=== PATIENT | female | born 1960 | race Caucasian/White ===

== ENCOUNTER 2018-11-10 08:14 | Inpatient (IN) | payer MEDICARE, MEDICAID ==
[~2018-11-10] VITALS: Ht 172.7 cm; Wt 64.1 kg
[2018-11-10] VITALS (8 sets, daily range): BP systolic 128–154; BP diastolic 85–101; BMI 21.1
[2018-11-10] MEDS ORDERED: ATIVAN1 MG PO (08:21)
[2018-11-10] MEDS ORDERED: BUPROPION XL150 MG PO (08:22)
[2018-11-10] MEDS ORDERED: EFFEXOR75 MG PO (08:23)
[2018-11-10] MEDS ORDERED: VITAMIN D250000 UNIT PO (08:23)
[2018-11-10] MEDS ORDERED: POTASSIUM CHLO10 ME1 PO (08:23)
[2018-11-10] MEDS ORDERED: VITAMIN B-1100 M1 PO (08:24)
[2018-11-10 08:52] LABS: BASOPHILS 0.3 % (0-2); EOSINOPHILS 1.7 % (0-7); HEMATOCRIT 37.8 % (36.0-48.0); HEMOGLOBIN 13.3 g/dL (12-16); IMMATURE GRANULOCYTES 0.4 % (0-5); LYMPHOCYTES 17.5 % (15-50); MCH 32.7 pg (26.0-34.0); MCHC 35.2 g/dL (31.0-37.0); MCV 92.9 fL (80.0-100.0); MEAN PLATELET VOLUME 8.3 fL (7.4-10.4); MONOCYTES 5.7 % (2-11); NEUTROPHILS 74.4 % (40-80); PLATELET COUNT 232 10x3/uL (130-400); RBC 4.07 10x6/uL (4.00-5.40); WBC 7.5 10x3/uL (4.8-10.8)
[2018-11-10 09:02] LABS: INR 0.97 (0.85-1.17); PROTIME 12.4 SECONDS (11.6-15.0)
[2018-11-10 09:06] LABS: ALKALINE PHOSPHATASE 78 U/L (46-116); ALT (SGPT) 33 U/L (10-68); BILIRUBIN - TOTAL 0.36 mg/dL (0.2-1.3); CALC OSMOLALITY 263 mosm/kg (275-300); CALCIUM 10.2 mg/dL (8.5-10.1); CARBON DIOXIDE 27.4 mmol/L (21.0-32.0); CHLORIDE - SERUM 98 mmol/L (98-107); CREATININE - SERUM 0.7 mg/dL (0.6-1.3); GLUCOSE 108 mg/dL (74-106); POTASSIUM - SERUM 3.9 mmol/L (3.5-5.1); PROTEIN - SERUM 6.1 g/dL (6.4-8.2); SODIUM 132 mmol/L (136-145); UREA NITROGEN 7 mg/dL (7-18); eGFR NON AFRICAN AMERICAN > 90 mL/min (90-120)
[2018-11-10 09:21] LABS: CKMB 0.7 U/L (0.0-3.6); CREATINE KINASE 25 UL (21-215); MAGNESIUM - SERUM 1.7 mg/dL (1.8-2.4); TROPONIN-I < 0.017 ng/mL (0.000-0.060)
[2018-11-10 09:55] LABS: APPEARANCE CLEAR (CLEAR); BILIRUBIN NEGATIVE (NEGATIVE); COLOR YELLOW (YELLOW); GLUCOSE NEGATIVE (NEGATIVE); KETONE NEGATIVE (NEGATIVE); NITRITE NEGATIVE (NEGATIVE); PROTEIN NEGATIVE (NEGATIVE); SPECIFIC GRAVITY 1.005 (1.005-1.020); UROBILINOGEN NORMAL (NORMAL)
[2018-11-10 10:01] LABS: UDS - AMPHET NEGATIVE QUAL (NEGATIVE); UDS - BARB NEGATIVE QUAL (NEGATIVE); UDS - BENZO NEGATIVE QUAL (NEGATIVE); UDS - COCAINE NEGATIVE QUAL (NEGATIVE); UDS - OPIATE NEGATIVE QUAL (NEGATIVE); UDS - PCP NEGATIVE QUAL (NEGATIVE); UDS - THC NEGATIVE QUAL (NEGATIVE)
--- NOTE | 2018-11-10 18:00 | NUR ---
TO MRI VIA WC.
--- NOTE | 2018-11-10 18:50 | NUR ---
BACK TO BED. ALARM ON.
--- NOTE | 2018-11-10 19:00 | NUR ---
PT QUIT BEFORE MRI CONTRAST WAS GIVEN. SAID SHE DID NOT WANT TO CONTINUE FOR CONTRAST. ALL NON CONTRAST IMAGES WERE OBTAINED
--- NOTE | 2018-11-10 20:00 | NUR ---
PT WAS OFF MONITOR FROM PREVIOUS SHIFT, I PLACED HER BACK ON MONITOR VERIFIED ORDERS AND GAVE PATIENT A SNACK ALL NEEDS MET AT THIS TIME. ALSO GAVE FIRST DOSE OF MAG REPLACEMENT WILL GIVE ANOTHER DOSE IN 4 HOURS.
[2018-11-11] VITALS (9 sets, daily range): BP systolic 120–142; BP diastolic 80–118; Ht 172.7 cm; Wt 64.1 kg
--- NOTE | 2018-11-11 00:10 | NUR ---
pt awake watching tv, denies any needs for pain meds or anxiety meds, snack provided all safety measures in place.
[2018-11-11 04:44] LABS: BASOPHILS 0.3 % (0-2); EOSINOPHILS 2.2 % (0-7); HEMATOCRIT 34.5 % (36.0-48.0); HEMOGLOBIN 11.8 g/dL (12-16); IMMATURE GRANULOCYTES 0.5 % (0-5); LYMPHOCYTES 24.7 % (15-50); MCH 32.1 pg (26.0-34.0); MCHC 34.2 g/dL (31.0-37.0); MCV 93.8 fL (80.0-100.0); MEAN PLATELET VOLUME 8.4 fL (7.4-10.4); MONOCYTES 5.9 % (2-11); NEUTROPHILS 66.4 % (40-80); PLATELET COUNT 213 10x3/uL (130-400); RBC 3.68 10x6/uL (4.00-5.40); RDW 14.3 % (11.5-14.5); WBC 6.4 10x3/uL (4.8-10.8)
[2018-11-11 06:13] LABS: ALBUMIN 2.5 g/dL (3.4-5.0); ALKALINE PHOSPHATASE 69 U/L (46-116); ALT (SGPT) 27 U/L (10-68); BILIRUBIN - TOTAL 0.33 mg/dL (0.2-1.3); CALCIUM 9.8 mg/dL (8.5-10.1); CARBON DIOXIDE 22.6 mmol/L (21.0-32.0); CHLORIDE - SERUM 101 mmol/L (98-107); GLUCOSE 97 mg/dL (74-106); PROTEIN - SERUM 5.1 g/dL (6.4-8.2); SODIUM 134 mmol/L (136-145)
[2018-11-11 06:26] LABS: CALC OSMOLALITY 264 mosm/kg (275-300); CREATININE - SERUM 0.5 mg/dL (0.6-1.3); POTASSIUM - SERUM 4.7 mmol/L (3.5-5.1); UREA NITROGEN 5 mg/dL (7-18); eGFR NON AFRICAN AMERICAN > 90 mL/min (90-120)
--- NOTE | 2018-11-11 18:42 | MORECARE ---
CASE MANAGEMENT DISCHARGE SUMMARY PATIENT: PERLA STRICKLAND UNIT: [id number] ADM DATE: 11/10/18 AGE: 58 : 58 SEX: F ROOM/BED: D.2311 AUTHOR: ROC ARCINIEGA PHYSICIAN: REFERRING PHYSICIAN: MARCELA MERRILL MD DATE OF SERVICE: 11/11/18 Discharge Plan Patient Name: PERLA STRICKLAND [facility] : 1960 Planned Disposition: Home Anticipated Discharge Date: Discharge Date: Expected LOS: Initial Reviewer: [email or web address] Initial Review Date: 11/11/2018 Generated: 11/11/18 7:42 pm DCPIA - Discharge Planning Initial Assessment Updated by [email or web address]: Ave Chow on 11/11/18 6:38 pm * Is the patient Alert and Oriented? No * How many steps to enter\exit or inside your home? ramp * PCP Jake Terry - [place] * Pharmacy [facility] [place] * Preadmission Environment Home with Family * ADLs Independent * Equipment None * List name and contact numbers for known caregivers / representatives who currently or will assist patient after discharge: Giovanny Snell - [facility] other- [phone] * Verbal permission to speak to the caregivers and representatives has been obtained from the patient. N/A * Community resources currently utilized None * Additional services required to return to the preadmission environment? No * Can the patient safely return to the preadmission environment? Yes * Has this patient been hospitalized within the prior 30 days at any hospital? No Patient Name: PERLA STRICKLAND Page [id number] at 1842 All edits/amendments must be made on the electronic document DICTATION DATE: 11/11/181841 EXECUTIVE WELLNESS PROGRAMS DIRECTOR: LATESHA 11/11/181841 RPT#: [id number] DC DATE: STATUS: ADM IN [facility] [address] [place] [address] END OF REPORT
--- NOTE | 2018-11-11 18:50 | MORECARE ---
CASE MANAGEMENT DISCHARGE SUMMARY PATIENT: PERLA STRICKLAND UNIT: [id number] ADM DATE: 11/10/18 AGE: 58 : 58 SEX: F ROOM/BED: D.2311 AUTHOR: SUZE,DOC PHYSICIAN: REFERRING PHYSICIAN: MARCELA MERRILL MD DATE OF SERVICE: 11/11/18 Discharge Plan Patient Name: PERLA STRICKLAND Facility: [facility]:[place] : 1960 Planned Disposition: Home Anticipated Discharge Date: Discharge Date: Expected LOS: Initial Reviewer: [email or web address] Initial Review Date: 11/11/2018 Generated: 11/11/18 7:49 pm Comments DCP- Discharge Planning Updated by [id number]: Ave Chow on 11/11/18 5:[address] LATE ENTRY 11/11/18 @ 1720 Patient Name: PERLA STRICKLAND Admission Status: ER Accout number: [id number] Admission Date: 11-10-2018 : 1960 Admission Diagnosis: Attending: MARCELA MERRILL Current LOS: 1 Anticipated DC Date: Planned Disposition: Home Primary Insurance: [employer] CHOICE PPO MCR ADVANT Discharge Planning Comments: CM met with patient and significant other (Giovanny) at bedside. Patient is confused so Giovanny answered all interview questions. Patient lives with Giovanny in their home. Giovanny states that patient doesn't have in medical equipment in the home or home health services. Giovanny denies any discharge needs at this time. CM will continue to follow and assist as needed with discharge planning / needs. Information Scientist: Ave Chow DCPIA - Discharge Planning Initial Assessment Updated by [email or web address]: Ave Chow on 11/11/18 6:38 pm * Is the patient Alert and Oriented? No * How many steps to enter\exit or inside your home? ramp * PCP Jake Terry - [place] * Pharmacy [facility] [place] * Preadmission Environment Home with Family * ADLs Independent * Equipment None * List name and contact numbers for known caregivers / representatives who currently or will assist patient after discharge: Giovanny Snell - Significant other- [phone] * Verbal permission to speak to the caregivers and representatives has been obtained from the patient. N/A * Community resources currently utilized None * Additional services required to return to the preadmission environment? No * Can the patient safely return to the preadmission environment? Yes * Has this patient been hospitalized within the prior 30 days at any hospital? No Last DP export: 11/11/18 5:42 pm Patient Name: PERLA STRICKLAND Page [id number] at 1850 All edits/amendments must be made on the electronic document DICTATION DATE: 11/11/181848 REAL ESTATE ASSOCIATE: LATESHA 11/11/181848 RPT#: [id number] DC DATE: STATUS: ADM IN [facility] [address] [place] [address] END OF REPORT
--- NOTE | 2018-11-11 20:45 | NUR ---
PT IS SITTING UP IN BED ATIVAN WAS GIVEN, SHE IS STILL WRINGING HANDS AND TREMORING, VSS ALL SAFETY MEASURES IN PLACE, SHE IS IN SIGHT OF THIS NURSE, WILL CONTINUE TO MONITOR.
--- NOTE | 2018-11-12 00:01 | NUR ---
pt seems very anxious asking to go outside, keeps folding blankets, sits up then lays back continually, ativan seems to have made her more anxious. pt wanting to leave, educated pt on need to stay and get stronger so she quits falling. pt also complaining of itching again after the start of banana bag, pt does have rash over body, will continue to monitor.
--- NOTE | 2018-11-12 00:34 | NUR ---
pt appears to be resting laying back with head covered up, no needs at this time will continue to monitor.
[2018-11-12 05:00] VITALS: BP 142/95
[2018-11-12 06:00] VITALS: BP 142/95
[2018-11-12 07:00] VITALS: BP 132/98
--- NOTE | 2018-11-12 07:00 | NUR ---
SHIFT REPORT RECEIVED. AWAKE AND ALERT. ON ROOM AIR WITH 97% O2 SAT. ORAL TEMP 98.3. BP 132/98 MAP 114, HR 90 NORMAL SINUS. LUNG SOUNDS COARSE. DRY COUGH NOTED. HAS R-FOREARM PIV SALINE LOCK. DOW IN PLACE WITH YELLOW URINE NOTED. DENIES HAVING PAIN AT THIS TIME. GENERALIZED BRUISING NOTED. SCAB ON LEFT KNEE. PT STATES SHE HAD BEEN FALLING FREQUENTLY AT HOME. SHIFT ASSESSMENT COMPLETED. DENIES FURTHER NEEDS AT THIS TIME. BED ALARM ON. WILL CONTINUE TO MONITOR.
--- NOTE | 2018-11-12 07:20 | NUR ---
SHIFT REPORT RECEIVED. PT AWAKE AND ALERT. CONFUSED TO DATE AND TIME. RESTING ON HER RIGHT SIDE. REPORT PAIN 3/10 ON HER LEFT FOOT. PITTING EDEMA 3+ ON RIGHT AND LEFT LE. HAS REI PICC LINE SALINE LOCKED. BRUISING NOTED ON HER BACK AND ARMS. BRUISE NOTED ON RIGHT LITTLE TOE. ON 8L OXYMIZER WITH O2 SAT 90%. AXILLARY TEMP 97.0. HR 106. BP 128/[address]OW IN PL[address] WITH CLEAR YELLOW URINE NOTED. SHIFT ASSESSMENT COMPLETED. CALL LIGHT IN REACH. SIDE RAILS UP X 2. BED LOW POSITION. WILL CONTINUE TO MONITOR.
--- NOTE | 2018-11-12 09:18 | NUR ---
AM MEDS GIVEN. NICOTINE PATCH PLACED ON REI. OLD NICOTINE PATCH REMOVED. ATE 90% OF MEAL AND HAD ABOUT 200ML OF FLUID. BATH SET UP AND CLEAN GOWN AND LINENS PROVIDED. PT ABLE TO BATHE SELF. ICE WATER PROVIDED. NO FURTHER NEEDS AT THIS TIME. WILL CONTINUE TO MONITOR.
[2018-11-12 11:00] VITALS: BP 141/96
--- NOTE | 2018-11-12 12:13 | NUR ---
LUNCH TRAY DELIVERED AND SET UP. DENIES FURTHER NEEDS AT THIS TIME. WILL CONTINUE TO MONITOR.
--- NOTE | 2018-11-12 14:22 | NUR ---
PT RESTING COMFORTABLY. WAITING FOR ROOM TO BECOME AVAILABLE TO TRANSFER. DENIES FURTHER NEEDS AT THIS TIME. WILL CONTINUE TO MONITOR.
--- NOTE | 2018-11-12 14:25 | NUR ---
PAPER WORK FAXED FOR PSYCH CONSULT. PHONE CALL PLACED TO [facility] TO NOTIFY STAFF THAT CONSULT HAD BEEN FAXED.
--- NOTE | 2018-11-12 15:10 | NUR ---
PT SITTING UP IN BED. CONFUSED TO TIME AND PLACE. NO ACUTE CHANGES. DENIES FURTHER NEEDS. WILL CONTINUE TO MONITOR.
[2018-11-12 16:00] VITALS: BP 140/96
--- NOTE | 2018-11-12 17:15 | NUR ---
DINNER TRAY DELIVERE TO ROOM AND SET UP. PT DENIES OTHER NEEDS AT THIS TIME. WILL CONTINUE TO MONITOR.
[2018-11-12 19:00] VITALS: BP 150/97
--- NOTE | 2018-11-12 21:30 | NUR ---
NEW PERIPHERAL #20 IV STARTED IN LEFT FOREARM WITH ONE STICK. GOOD BLOOD RETURN, EASILY FLUSHES, NO COMPLAINTS FROM PATIENT. SALINE LOCKED.
[2018-11-13] VITALS (7 sets, daily range): BP systolic 99–162; BP diastolic 66–113
--- NOTE | 2018-11-13 13:45 | NUR ---
OBSERVED PT PULLING AT DOW, PT VERBALIZED SHE DID NOT NEED THE DOW SHE COULD URINATE ON HER ON AND WANTS IT REMOVED. REMOVED 8ML SALINE FROM DOW PORT, REMOVED DOW CATH INTACT
--- NOTE | 2018-11-13 14:25 | NUR ---
ASSISTED PT WITH CLEANING BOTTOM AFTER BM, APPLIED BUTTPASTE TO BUTTOCKS
--- NOTE | 2018-11-13 15:30 | NUR ---
CALLED REPORT TO JEAN-PAUL LUNDBERG ON MED 3
--- NOTE | 2018-11-13 16:45 | NUR ---
TRANSPORTED VIA W/C TO [facility] 1205.
--- NOTE | 2018-11-13 17:14 | NUR ---
RESUMED PT CARE. PT ALERT X 4. DINNER IN ROOM. NO OTHER NEEDS AT THIS TIME.
--- NOTE | 2018-11-13 19:40 | NUR ---
PATIENT SITTING UP IN BED WITH NO S/S OF DISTRESS AND AT BEDSIDE. PATIENT DENIES NEEDS AT THIS TIME. BED IN LOWEST POSITION AND CALL LIGHT WITHIN REACH. ENCOURAGED THE PATIENT TO CALL IF SHE HAS NEEDS. WILL CONTINUE TO MONITOR.
[2018-11-14 04:00] VITALS: BP 133/90
[2018-11-14 08:24] VITALS: BP 126/86
--- NOTE | 2018-11-14 09:20 | NUR ---
AM MEDS GIVEN AT THIS TIME. ALSO PROVIDED PT WITH COFFEE. PT DENIES ANY OTHER NEEDS AT THIS TIME. CALL LIGHT IN REACH, NAD NOTED,W ILL CONTINUE TO MONITOR.
--- NOTE | 2018-11-14 11:00 | NUR ---
[facility] WAS WONDERING AROUND AROUND THE UNIT. WENT AND GOT PT BACK TO ROOM. PT STATED THAT SHE THOUGHT SHE WAS IN ROOM 2205 INSTEAD OF ROOM 1205. PT DENIES ANY NEEDS AT THIS TIME. CALL LIGHT IN REACH, NAD NOTED, WILL CONTINUE TO MONITOR.
--- NOTE | 2018-11-14 11:47 | NUR ---
CALLED [facility] AND INFORMED THEM OF CONSULT FOR DR. CAREY.
[2018-11-14 13:00] VITALS: BP 129/90
[2018-11-14 13:40] LABS: BASOPHILS 0.4 % (0-2); EOSINOPHILS 3.5 % (0-7); HEMATOCRIT 35.6 % (36.0-48.0); HEMOGLOBIN 12.1 g/dL (12-16); IMMATURE GRANULOCYTES 0.2 % (0-5); LYMPHOCYTES 27.6 % (15-50); MCH 32.7 pg (26.0-34.0); MCV 96.2 fL (80.0-100.0); MEAN PLATELET VOLUME 8.6 fL (7.4-10.4); MONOCYTES 6.7 % (2-11); NEUTROPHILS 61.6 % (40-80); PLATELET COUNT 245 10x3/uL (130-400); RDW 14.4 % (11.5-14.5); WBC 4.9 10x3/uL (4.8-10.8)
[2018-11-14 13:55] LABS: CALC OSMOLALITY 272 mosm/kg (275-300); CALCIUM 10.1 mg/dL (8.5-10.1); CARBON DIOXIDE 25.4 mmol/L (21.0-32.0); CHLORIDE - SERUM 104 mmol/L (98-107); CREATININE - SERUM 0.7 mg/dL (0.6-1.3); GLUCOSE 88 mg/dL (74-106); POTASSIUM - SERUM 3.8 mmol/L (3.5-5.1); SODIUM 138 mmol/L (136-145); UREA NITROGEN 8 mg/dL (7-18); eGFR NON AFRICAN AMERICAN > 90 mL/min (90-120)
[2018-11-14 16:54] VITALS: BP 141/86
--- NOTE | 2018-11-14 17:56 | MORECARE ---
CASE MANAGEMENT DISCHARGE SUMMARY PATIENT: PERLA STRICKLAND UNIT: [id number] ADM DATE: 11/10/18 AGE: 58 : 58 SEX: F ROOM/BED: D.1205 AUTHOR: SUZE,DOC PHYSICIAN: REFERRING PHYSICIAN: MARCELA MERRILL MD DATE OF SERVICE: 11/14/18 Discharge Plan Patient Name: PERLA STRICKLAND Facility: [facility]:[place] : 1960 Planned Disposition: Home Anticipated Discharge Date: Discharge Date: Expected LOS: Initial Reviewer: [email or web address] Initial Review Date: 11/11/2018 Generated: 11/14/18 6:56 pm Comments DCP- Discharge Planning Updated by [email or web address]: Ana Betancur on 11/14/18 4:[address] PSYCH CONSULT ORDERED THIS AM. PATIENT WAS SEEN BY DR COFFEY THIS PM. DCP- Discharge Planning Updated by [email or web address]: Ave Chow on 11/11/18 5:[address] LATE ENTRY 11/11/18 @ 1720 Patient Name: PERLA STRICKLAND Admission Status: ER Accout number: [id number] Admission Date: 11-10-2018 : 1960 Admission Diagnosis: Attending: MARCELA MERRILL Current LOS: 1 Anticipated DC Date: Planned Disposition: Home Primary Insurance: [employer] CHOICE PPO MCR ADVANT Discharge Planning Comments: CM met with patient and significant other (Giovanny) at bedside. Patient is confused so Giovanny answered all interview questions. Patient lives with Giovanny in their home. Giovanny states that patient doesn't have in medical equipment in the home or home health services. Giovanny denies any discharge needs at this time. CM will continue to follow and assist as needed with discharge planning / needs. Executive Business Coach: Ave Chow DCPIA - Discharge Planning Initial Assessment Updated by [email or web address]: Ave Chow on 11/11/18 6:38 pm * Is the patient Alert and Oriented? No * How many steps to enter\exit or inside your home? ramp * PCP Jake White * Pharmacy [facility] [place] * Preadmission Environment Home with Family * ADLs Independent * Equipment None * List name and contact numbers for known caregivers / representatives who currently or will assist patient after discharge: Giovanny Rojo [facility]- [phone] * Verbal permission to speak to the caregivers and representatives has been obtained from the patient. N/A * Community resources currently utilized None * Additional services required to return to the preadmission environment? No * Can the patient safely return to the preadmission environment? Yes * Has this patient been hospitalized within the prior 30 days at any hospital? No Last DP export: 11/11/18 5:50 pm Patient Name: PERLA STRICKLAND Page [phone] at 1756 All edits/amendments must be made on the electronic document DICTATION DATE: 11/14/181754 BEATER ENGINEER: LATESHA 11/14/181754 RPT#: [id number] DC DATE: STATUS: ADM IN [facility] [address] [place] [address] END OF REPORT
--- NOTE | 2018-11-14 19:48 | NUR ---
BROUGHT PATIENT A CUP OF COFFEE PER HER REQUEST. PATIENT DENIES OTHER NEEDS AT THIS TIME. BED IN LOWEST POSITION AND CALL LIGHT WITHIN REACH. ENCOURAGED THE PATIENT TO CALL IF SHE HAS NEEDS.
[2018-11-14 20:00] VITALS: BP 113/75
[2018-11-15] VITALS: BP 119/77
[2018-11-15 04:00] VITALS: BP 142/90
[2018-11-15 07:27] VITALS: BP 126/89
--- NOTE | 2018-11-15 08:21 | NUR ---
AM MEDS GIVEN AT THIS TIME. PT IN BED EATING BREAKFAST, DENIES ANY NEEDS AT THIS TIME. PT A/O X2, RESP EVEN AND NONLABORED ON RA. CALL LIGHT IN REACH, NAD NOTED,W ILL CONTINUE TO MONITOR.
[2018-11-15 11:43] VITALS: BP 143/91
--- NOTE | 2018-11-15 12:29 | NUR ---
Regular diet with 25,75,75% intake of meals yesterday Pt reports good appetite. Pt reports she has some difficulty chewing as has not brought in teeth for her. Pt is ordering per toleration and does not want diet adjusted. Pt will not drink Ensure but likes Boost. Ordered Boost all trays. Pt hopes/expects will bring teeth tonight RD following
[2018-11-15] MEDS ORDERED: LEXAPRO10 MG PO (12:38)
[2018-11-15] MEDS ORDERED: COREG6.25 MG PO (12:39)
--- NOTE | 2018-11-15 14:29 | NUR ---
PROVIDED VERBAL AND WRITTEN DISCHARGE TEACHING TO PT, WHO VERBALIZED UNDERSTANDING REGARDING TEACHING. D/C LT FA IV WITH CATHETER TIP INTACT. PT TRYING TO GET A RIDE, WILL NOTIFY THIS NURSE WHEN SHE HAS SOMEONE TO COME PICK HER UP. PT DENIES ANY NEEDS AT THIS TIME. CALL LIGHT IN REACH, NAD NOTED, WILL CONTINUE TO MONITOR.
--- NOTE | 2018-11-15 15:13 | CN ---
PATIENT NAME:PERLA STRICKLAND MEDICAL RECORD: [id number] : 58 [facility] ADMIT DATE: 11/10/18 ACCOUNT: [id number] CONSULTING PHYSICIAN: SALVADOR COFFEY MD REFERRING PHYSICIAN: MARCELA MERRILL MD DATE OF CONSULTATION: 11/14/2018 PSYCHIATRIC CONSULTATION IDENTIFYING DATA: The patient is 58 years old and she is admitted to the hospital on a voluntary basis. CHIEF COMPLAINT: Confusion. HISTORY OF PRESENT ILLNESS: The patient apparently had been falling at home and was brought to the hospital because of this along with some confusion. She apparently was drinking very heavily and has done so for a long time. She is evasive about how much she drinks, but I also think she does not accurately recall it. She also says she is not going to drink anymore and that this incident has frightened her, but she is glad she is fully recovered. She says she is fully recovered. She denies depressive symptoms. She denies psychotic symptoms. She sees no evidence or is able to detect no evidence of any impairment. MENTAL STATUS EXAMINATION: The patient is awake; alert; and oriented to person, place, and somewhat to time and situation. She identifies the year as 2019 and the month is February. Her mood is euthymic. Her affect is appropriate. Thought processes are goal directed. Memory, concentration, and abstraction abilities are impaired. She denies intent to harm herself or others as well as psychotic symptoms. ASSESSMENT: Alcohol-related dementia. PLAN: The patient, in my view, is significantly and seriously impaired. It is my understanding, both from the medical record as well as from the patient herself, that her long-term live-in boyfriend, Giovanny ____, is going to care for her. Apparently, they have cohabitated for the past 12 years. She wants to go home with him as soon as possible. She does not want to go to any kind of substance abuse treatment and does not feel it is necessary either on an inpatient or outpatient basis. She dismisses my statements that she is impaired from her alcoholism. It is my belief that the patient cannot make reasonable informed consent decisions in a general way. Although, at this point, I would not say that she is so disabled that she could not be managed by a well-meaning boyfriend who is going to try to care for her. I do think she does not need to be taking 2 antidepressant medications and I would probably discontinue the Wellbutrin and continue the Lexapro. Taking the thiamin is certainly fine. Her long-term prognosis is probably going to be almost entirely contingent upon her continuing to abstain from alcohol, which she insists she is going to do without any kind of assistance, but I would have concerns about this. Nevertheless, I certainly cannot force her to go into any sort of residential program or to participate in an outpatient program, although I have told her directly that it is my recommendation. TRANSINT:[id number] Voice Confirmation ID: [id number] DOCUMENT ID: [id number] CONSULT REPORT [id number] PERLA STRICKLAND, SALVADOR RYAN at 1513 CC: [id number] DICTATION DATE: 11/14/18 1527 ASSOCIATE ENTERTAINMENT EDITOR: 11/14/18 1615 ADM IN [facility] [id number] [place] [address]
--- NOTE | 2018-11-15 19:15 | NUR ---
PATIENT D/C'D VIA WHEELCHAIR WITH NO S/S OF DISTRESS. DESIGN ENGINEERING TECHNICIAN WHEELED THE PATIENT OUT WITH HER .
--- NOTE | 2018-11-18 15:53 | MORECARE ---
CASE MANAGEMENT DISCHARGE SUMMARY PATIENT: PERLA STRICKLAND UNIT: [id number] ADM DATE: 11/10/18 AGE: 58 : 58 SEX: F ROOM/BED: D.1205 AUTHOR: SUZE,DOC PHYSICIAN: REFERRING PHYSICIAN: MARCELA MERRILL MD DATE OF SERVICE: 11/18/18 Discharge Plan Patient Name: PERLA STRICKLAND Facility: [facility]:[place] : 1960 Planned Disposition: Home Anticipated Discharge Date: Discharge Date: 11/15/2018 Expected LOS: Initial Reviewer: [email or web address] Initial Review Date: 11/11/2018 Generated: 11/18/18 4:53 pm Comments DCP- Discharge Planning Updated by [id number]: Ana Betancur on 11/14/18 4:[address] PSYCH CONSULT ORDERED THIS AM. PATIENT WAS SEEN BY DR COFFEY THIS PM. DCP- Discharge Planning Updated by [email or web address]: Ave Chow on 11/11/18 5:[address] LATE ENTRY 11/11/18 @ 1720 Patient Name: PERLA STRICKLAND Admission Status: ER Accout number: [id number] Admission Date: 11-10-2018 : 1960 Admission Diagnosis: Attending: MARCELA MERRILL Current LOS: 1 Anticipated DC Date: Planned Disposition: Home Primary Insurance: [employer] CHOICE PPO MCR ADVANT Discharge Planning Comments: CM met with patient and significant other (Giovanny) at bedside. Patient is confused so Giovanny answered all interview questions. Patient lives with Giovanny in their home. Giovanny states that patient doesn't have in medical equipment in the home or home health services. Giovanny denies any discharge needs at this time. CM will continue to follow and assist as needed with discharge planning / needs. Fleece Tier: Ave Chow DCPIA - Discharge Planning Initial Assessment Updated by [email or web address]: Ave Chow on 11/11/18 6:38 pm * Is the patient Alert and Oriented? No * How many steps to enter\exit or inside your home? ramp * PCP Jake Terry - [place] * Pharmacy [facility]- [place] * Preadmission Environment Home with Family * ADLs Independent * Equipment None * List name and contact numbers for known caregivers / representatives who currently or will assist patient after discharge: Giovanny Rojo [facility]- [phone] * Verbal permission to speak to the caregivers and representatives has been obtained from the patient. N/A * Community resources currently utilized None * Additional services required to return to the preadmission environment? No * Can the patient safely return to the preadmission environment? Yes * Has this patient been hospitalized within the prior 30 days at any hospital? No Coverage Notice Reviewer: [email or web address] Denia Boudreaux Notice Issued Date-Time: 11/15/2018 13:07 Notice Type: IM Discharge Notice Notice Delivered To: Patient Relationship to Patient: Self Insecticide Mixer Name: Delivery Method: HAND - Hand Delivered Nova Days: Prior Verbal Notification: Recipient Understood Notice: Yes Recipient Signature: Yes Med Rec Note Co-signed by Attending: Coverage Notice Comment: Last DP export: 11/14/18 4:56 pm Patient Name: PERLA STRICKLAND Page [id number] at 1553 All edits/amendments must be made on the electronic document DICTATION DATE: 11/18/18 1552 CLOCK MECHANIC: LATESHA 11/18/18 1552 RPT#: [id number] DC DATE:11/15/18 STATUS: DIS IN [facility] [address] [place] [address] END OF REPORT
== END 2018-11-15 19:15 | disposition home or self-care (01) | DRG 896 ==
LOC: D.ER 08:14 → D.ICU 12:30 → D.M3 11-13 16:45
PROVIDERS: Emergency Medicine; Family Medicine; ADMIT Internal Medicine Nephrology
DX: F10.27 Alcohol dependence with alcohol-induced persisting dementia (principal); G92 Toxic encephalopathy; E87.1 Hypo-osmolality and hyponatremia; J44.9 Chronic obstructive pulmonary disease, unspecified; F32.9 Major depressive disorder, single episode, unspecified; I10 Essential (primary) hypertension; W19.XXXA Unspecified fall, initial encounter; E87.5 Hyperkalemia; E21.3 Hyperparathyroidism, unspecified; Z91.81 History of falling; Z72.0 Tobacco use